=== PATIENT | male | born 1955 ===

== ENCOUNTER 2016-09-29 09:16 | Emergency (ER) | payer MEDICARE ==
[2016-09-29 09:25] VITALS: BP 152/97; PULSE 97; RESP 20; TEMP 98.3; O2SAT 99; BMI 29.9
--- NOTE | 2016-09-29 09:36 | ED PDOC ---
Arrival/HPI - General Time Seen by Provider: 09/29/16 09:23 Historian: Patient - History of Present Illness Narrative History of Present Illness (Text): 09/29/16 09:29 Jairo Lee is a 61 year old male who presents to the emergency department complaining of constipation since this morning. Patient notes that these symptoms have been progressively worsening over the past few days, until this morning when he was not able to pass a bowel movement at all. Patient denies any fever, chills, chest pain, shortness of breath, nausea, vomiting, urinary symptoms, back pain, neck pain, headache, dizziness, or any other complaints. PMD: Dr. Sibley Time/Duration: 4-6 hours Symptom Onset: Gradual Symptom Course: Unchanged Activities at Onset: Light Context: Home Associated Symptoms (Text): 09/29/16 09:45 Patient reports constipation since this morning. He had a normal bowel movement yesterday. No abdominal pain nausea vomiting or diarrhea. No genitourinary symptoms. No low back pain. No fever or chills. Past Medical History - Provider Review Nursing Documentation Reviewed: Yes Family/Social History - Physician Review Nursing Documentation Reviewed: Yes Family/Social History: No Known Family HX Smoking Status: Never Smoked Hx Alcohol Use: Yes Frequency of alcohol use: Socially Hx Substance Use: No Allergies/Home Meds Allergies/Adverse Reactions: Allergies No Known Allergies Allergy (Verified 09/29/16 09:28) Home Medications: Home Meds Medication Instructions Recorded Confirmed Atorvastatin [Lipitor] 10 mg PO DAILY 09/29/16 09/29/16 Enalapril Maleate [Vasotec] 5 mg PO DAILY 09/29/16 09/29/16 Metformin ER [Glucophage XR] 750 mg PO DAILY 09/29/16 09/29/16 hydroCHLOROthiazide [Hydrodiuril] 25 mg PO DAILY 09/29/16 09/29/16 Review of Systems - Physician Review All systems were reviewed & negative as marked: Yes - Review of Systems Constitutional: absent: Fevers Eyes: absent: Vision Changes ENT: absent: Hearing Changes Respiratory: absent: SOB, Cough Cardiovascular: absent: Chest Pain Gastrointestinal: Constipation. absent: Abdominal Pain Genitourinary Male: absent: Dysuria, Urinary Output Changes Musculoskeletal: absent: Back Pain, Neck Pain Skin: absent: Rash, Pruritis Neurological: absent: Headache, Dizziness Endocrine: absent: Polyuria Hemo/Lymphatic: absent: Easy Bleeding Psychiatric: absent: Depression Physical Exam Vital Signs Reviewed: Yes Vital Signs Temp Pulse Resp BP Pulse Ox 09/29/16 09:24 98.3 F 97 H 20 152/97 H 99 Temperature: Afebrile Blood Pressure: Hypertensive Pulse: Regular Respiratory Rate: Normal Appearance: Positive for: Well-Appearing, Non-Toxic, Comfortable Pain Distress: None Mental Status: Positive for: Alert and Oriented X 3 - Systems Exam Head: Present: Atraumatic, Normocephalic Pupils: Present: PERRL Extroacular Muscles: Present: EOMI Conjunctiva: Present: Normal Mouth: Present: Moist Mucous Membranes Neck: Present: Normal Range of Motion Respiratory/Chest: Present: Clear to Auscultation, Good Air Exchange. No: Respiratory Distress, Accessory Muscle Use Cardiovascular: Present: Regular Rate and Rhythm, Normal S1, S2. No: Murmurs Abdomen: Present: Normal Bowel Sounds. No: Tenderness, Distention, Peritoneal Signs, Rebound, Guarding Rectal: Present: Rectal Tenderness, Normal Rectal Tone, Other (Fecal Impaction) . No: Occult Blood, Gross Blood, Melena, Hemorrhoids, Fissures Back: Present: Normal Inspection Upper Extremity: Present: Normal Inspection. No: Cyanosis, Edema Lower Extremity: Present: Normal Inspection. No: Edema Neurological: Present: GCS=15, CN II-XII Intact, Speech Normal, Motor Func Grossly Intact Skin: Present: Warm, Dry, Normal Color. No: Rashes Psychiatric: Present: Alert, Oriented x 3, Normal Insight, Normal Concentration Medical Decision Making ED Course and Treatment: 09/29/16 09:29 Impression: 61 year old male complaining of constipation since this morning. Plan: -- Fleet Enema -- Reassess and disposition Progress Notes: 09/29/16 09:30 Rectal exam performed on patient, results are large, brown stool and guiac negative. Fecal impaction. 09/29/16 10:20 success after Fleet Enema - Medication Orders Current Medication Orders: Discontinued Medications Sodium Phosphate (Fleet Enema) 135 ml RC STAT STA Stop: 09/29/16 09:37 Last Admin: 09/29/16 09:52 Dose: 135 ml - Scribe Statement The provider has reviewed the documentation as recorded by the Luis Alamo Provider Scribe Attestation: All medical record entries made by the Scribe were at my direction and personally dictated by me. I have reviewed the chart and agree that the record accurately reflects my personal performance of the history, physical exam, medical decision making, and the department course for this patient. I have also personally directed, reviewed, and agree with the discharge instructions and disposition. Disposition/Present on Arrival - Present on Arrival Any Indicators Present on Arrival: No History of DVT/PE: No History of Uncontrolled Diabetes: No Urinary Catheter: No History of Decub. Ulcer: No - Disposition Have Diagnosis and Disposition been Completed?: Yes Diagnosis: Constipation, Fecal impaction in rectum Disposition: HOME/ ROUTINE Disposition Time: 10:21 Patient Plan: Discharge Condition: IMPROVED Discharge Instructions (ExitCare): Constipation (ED), Hypertension (ED)
== END 2016-09-29 10:27 | disposition home or self-care (01) ==
LOC: ED 09:16
DX: K59.00 Constipation, unspecified (principal)

== ENCOUNTER 2018-03-19 13:59 | Emergency (ER) | payer MEDICARE ==
[2018-03-19 13:59] VITALS: BMI 29.9
[2018-03-19 14:07] VITALS: BP 145/85; PULSE 69; RESP 18; TEMP 98.2; O2SAT 96
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
== END 2018-03-19 14:26 | disposition home or self-care (01) ==
LOC: ED 13:59
DX: Z04.89 Encounter for examination and observation for other specified reasons (principal)